=== PATIENT | male | born 1970 | race African-American/Black ===

== ENCOUNTER 2022-06-28 13:19 | Emergency (ER) | payer BC ==
[2022-06-28 13:44] VITALS: BP 119/78; PULSE 78; RESP 16; TEMP 97.8; BMI 28.7
[2022-06-28] MEDS ORDERED: KETOROLAC TROMETHAMINE 30 MG/1 ML VIAL IM ONE (14:30)
[2022-06-28] MEDS ORDERED: KETOROLAC TROMETHAMINE 30 MG/1 ML VIAL ONE (14:31)
== END 2022-06-28 15:02 | disposition home or self-care (01) ==
LOC: JERFT 13:19
PROC: 3E0233Z Introduction of Anti-inflammatory into Muscle, Percutaneous Approach (ICD-10-PCS; principal; 2022-06-28)
DX: S46.911A Strain of unspecified muscle, fascia and tendon at shoulder and upper arm level, right arm, initial encounter (principal); X50.0XXA Overexertion from strenuous movement or load, initial encounter
CPT/HCPCS: 73030-TC-RT-FY; 99284-25

== ENCOUNTER 2023-04-20 19:54 | Emergency (ER) | payer BC ==
[2023-04-20 20:09] VITALS: BP 132/99; PULSE 70; RESP 16; TEMP 97.8; BMI 28.0
[2023-04-20] MEDS ORDERED: DIPHTH,PERTUSS(ACELL),TET 0.5 ML DISP.SYRIN IM ONE ×2 (20:50→20:51)
== END 2023-04-20 21:05 | disposition home or self-care (01) ==
LOC: FER 19:54
PROC: 08QPXZZ Repair Left Upper Eyelid, External Approach (ICD-10-PCS; principal; 2023-04-20)
PROC: 3E0234Z Introduction of Serum, Toxoid and Vaccine into Muscle, Percutaneous Approach (ICD-10-PCS; 2023-04-20)
DX: S01.112A Laceration without foreign body of left eyelid and periocular area, initial encounter (principal); W01.198A Fall on same level from slipping, tripping and stumbling with subsequent striking against other object, initial encounter; Y93.9 Activity, unspecified; Y92.9 Unspecified place or not applicable
CPT/HCPCS: 90715; 99283-25